=== PATIENT | male | born 1950 | race Caucasian/White ===

== ENCOUNTER 2020-09-06 08:09 | Outpatient (REF) | payer MEDICARE, SELFPAY ==
--- NOTE | 2020-09-06 | US_ITS ---
EXAMINATION: US RETROPERITONEAL LIMITED (AORTA) CLINICAL INFORMATION: Screening. History of smoking. COMPARISON: Ultrasound abdomen complete dated 08/28/2009. TECHNIQUE: Larson-scale, color Doppler and spectral Doppler evaluation of the abdominal aorta. FINDINGS: The aorta is normal. The measurements of the aorta in maximum AP and transverse dimensions respectively are as follows: Proximal: 2.8 x 2.8 cm. Mid: 2.2 x 2.6 cm. Distal: 2.1 x 2.2 cm. PSV: 48.9 cm/s. The measurements of the common iliac arteries in maximum AP and TRV dimensions are as follows: Right Common Iliac Artery: 1.2 x 1.2 cm. Left Common Iliac Artery: 1.2 x 1.3 cm. US/US aorta IMPRESSION: No abdominal aortic aneurysm. Mild atherosclerotic plaque seen..
== END 2020-09-06 08:10 | disposition home or self-care (01) ==
LOC: HO.US 08:09
PROVIDERS: PCP Internal Medicine; Visit Provider Internal Medicine
DX: Z72.0 Tobacco use (principal)
CPT/HCPCS: 76775

== ENCOUNTER 2021-01-21 13:23 | Outpatient (REF) | payer MEDICARE, SELFPAY ==
--- NOTE | ~2021-01-21 | XR_ITS ---
EXAMINATION: XR CHEST CLINICAL INFORMATION: COPD COMPARISON: CT chest 10/19/2019 TECHNIQUE: 2 views of the chest were obtained. FINDINGS: The lungs are hyperinflated but clear of acute process. Minimal atelectatic changes seen in the left lung base. The heart size and pulmonary vascularity is normal. No gross bony abnormality seen. XR/XR chest 2V IMPRESSION: Hyperinflated lungs otherwise no acute process seen. Minimal atelectatic changes left lung base.
== END 2021-01-21 13:24 | disposition home or self-care (01) ==
LOC: HO.XRAY 13:23
PROVIDERS: Absent Provider Internal Medicine; PCP Internal Medicine; Visit Provider Internal Medicine
DX: J18.9 Pneumonia, unspecified organism (principal); J44.9 Chronic obstructive pulmonary disease, unspecified
CPT/HCPCS: 71046

== ENCOUNTER 2021-01-22 13:11 | Outpatient (REF) | payer MEDICARE, SELFPAY ==
--- NOTE | ~2021-01-22 | CT_ITS ---
EXAMINATION: CT CHEST SCREENING CLINICAL INFORMATION: Lung cancer screening COMPARISON: October 2019 TECHNIQUE: Multidetector volumetric CT imaging of the chest is performed without contrast using low dose technique. Additional 2D coronal and sagittal reformatted images and axial 3D maximum intensity projection (MIP) images are generated on the CT workstation. This CT examination was performed using dose optimization techniques as appropriate, variously including the following: *Automated exposure control *Adjustment of mA and/or kV according to patient size (this includes techniques or standardized protocols for targeted exams where dose is matched to indication/reason for exam; i.e. extremities or head) *Use of iterative reconstruction technique DLP: 47 mGy-cm FINDINGS: LUNGS: There is evidence of emphysema. There is increasing scarring or subsegmental atelectasis at the right lung base. This has a somewhat nodular appearance on axial images for example measuring 6 x 10 mm axial image 479 series 5 and attention on follow-up is recommended. Scarring or subsegmental atelectasis at the left lung base appears decreased compared to previous exam. Small calcified and noncalcified pulmonary nodules are stable. MEDIASTINUM: There is coronary artery calcification. The mediastinum is otherwise normal. PLEURA: There is no pleural effusion. No pleural mass or thickening. AXILLA: No lymphadenopathy. UPPER ABDOMEN: Unremarkable OSSEOUS STRUCTURES: Unremarkable. CT/CT lung screening IMPRESSION: Emphysema. Stable small calcified and noncalcified pulmonary nodules. Increased atelectasis at the right lung base. This is a somewhat nodular contour and attention on follow-up is recommended. Decreased atelectasis at the left lung base compared to 2020 exam. ASSESSMENT: Lung-RADS category 2: Benign RECOMMENDATION: Annual low-dose chest CT follow-up recommended.
== END 2021-01-22 13:12 | disposition home or self-care (01) ==
LOC: HO.CT 13:11
PROVIDERS: PCP Internal Medicine; Visit Provider Physician Assistant Medical
DX: Z12.2 Encounter for screening for malignant neoplasm of respiratory organs (principal); F17.210 Nicotine dependence, cigarettes, uncomplicated
CPT/HCPCS: 71271

== ENCOUNTER → 2022-05-28 14:52 | Outpatient (BNVA) | payer MEDICARE, SELFPAY | PROVIDERS: PCP Internal Medicine; Visit Provider Internal Medicine | DX: R63.4 Abnormal weight loss (principal); R19.4 Change in bowel habit; F17.210 Nicotine dependence, cigarettes, uncomplicated; Z86.010 Personal history of colon polyps | CPT/HCPCS: 99202 ==

== ENCOUNTER → 2022-06-26 10:01 | Day surgery (SDC) | payer OTHER, SELFPAY ==
[2022-06-19 12:18] VITALS: BMI 17.8
--- NOTE | 2022-06-25 12:48 | P.CONAN_ITS ---
HPI - Anesthesia Eval Consult details Narrative: Cx'd DOS for +UTox 72yo M for Upper Endoscopy and Colonoscopy [facility] Active Problems Active Problems: All Active Problems (Updated 05/28/22 @ 17:08 by Irina Alvarado MD) Encounter for diagnostic colonoscopy due to change in bowel habits (Acute) Tobacco use disorder (Acute) Personal history of colonic polyps (Acute) Weight loss, unintentional (Acute) Past Medical History Medical History (Updated 05/28/22 @ 17:08 by Irina Alvarado MD) Allergic rhinitis Chronic hepatitis C COPD (chronic obstructive pulmonary disease) History of shingles HIV disease Hypogonadism male Mood disorder Multiple myeloma Opioid dependence Postherpetic neuralgia Tobacco use disorder Tubular adenoma of colon Vitamin D deficiency Family History Family History Other No family history of cancer Surgical History Surgical History (Updated 06/26/22 @ 10:10 by Mary Ch RN) Hx of colonoscopy Social History Social History Household Members: Spouse and Children Housing: Apartment Are you a primary child care teacher to a significant other at home: No Do you presently have visiting nurse or other home services: Yes Patient Tobacco Use Status: Current everyday Tobacco user Tobacco use type: Cigarette Cigarettes Per Day: 10 Use of substances other than those prescribed or required for medical reasons: Yes Substance Use Type: Marijuana Substance Use Type Other:: former heroin about 1 yr ago Substance Use Frequency: Daily Are you DNR?: No Advance Directives: No Advance Directives Information Provided: Yes service: No Current occupational status: disabled Meds Allergies Allergy/AdvReac Type Severity Reaction Status Date / Time No Known Allergies Allergy Verified 06/26/22 10:11 Home Medications Medication Instructions Recorded Confirmed Last Taken Type albuterol sulfate 90 mcg/actuation 2 puff inhalation Q4-6H PRN 04/01/22 06/26/22 Unknown History aerosol inhaler (Ventolin HFA) Shortness Of Breath Or Wheezing ascorbic acid (vitamin C) 500 mg 500 mg PO DAILY 04/01/22 06/26/22 Unknown History tablet bictegravir 50 mg-emtricitabine 1 tab PO QAM 04/01/22 06/26/22 Unknown History 200 mg-tenofovir alafenam 25 mg tablet (Biktarvy) buprenorphine 1.4 mg-naloxone 0.36 1.5 tab sublingual DAILY 04/01/22 06/26/22 Unknown History mg sublingual tablet (Zubsolv) doxepin 25 mg capsule 1 cap PO BEDTIME 04/01/22 06/26/22 Unknown History gabapentin 800 mg tablet 1 tab PO TID 04/01/22 06/26/22 Unknown History ipratropium 0.5 mg-albuterol 3 mg 3 ml inhalation QID PRN Fatigue 04/01/22 06/26/22 Unknown History (2.5 mg base)/3 mL nebulization soln mirtazapine 15 mg tablet 1 tab PO BEDTIME 04/01/22 06/26/22 Unknown History multivitamin 1 tab PO DAILY 04/01/22 06/26/22 Unknown History naloxone 4 mg/actuation nasal 4 mg intranasal Q3M PRN Opioid 04/01/22 06/26/22 Unknown History spray (Narcan) Overdose nebulizer and compressor ([place] 04/01/22 06/26/22 Unknown History Choice Nebulizer) tacrolimus 0.1 % topical ointment 1 appl topical BID 04/01/22 06/26/22 Unknown History (Protopic) Exam Exam Date and Time: June 25, 2022 1248 Height,Weight and Vital Signs: Height 5 ft 7 in Weight 51.71 kg Pertinent Lab Results Pertinent Lab Results: Laboratory Tests 05/02/22 05/02/22 13:23 13:23 WBC 4.0 L Hgb 14.9 Hct 46.6 Plt Count 123 L Sodium 141 Potassium 4.7 Chloride 105 Carbon Dioxide 27 BUN 21 H Creatinine 0.95 Assessment and Plan Assessment Anesthesia Assessment: Chart Reviewed
[2022-06-26 10:35] VITALS: BP 110/63; PULSE 57; RESP 15; TEMP 36.4; O2SAT 95
[2022-06-26] MEDS: Lactated Ringers 1,000 ML 100 ML IVCONT (10:41)
--- NOTE | 2022-06-26 12:02 | MHC.SHP ---
Pre-Procedural Eval Section A Date of Service: 06/26/22 The History & Physical has been completed within 30 days and I have reviewed it.: Yes Section B Chief Complaint: Abnormal weight loss, Benign neoplasm of colon Allergies: Allergies Allergy/AdvReac Type Severity Reaction Status Date / Time No Known Allergies Allergy Verified 06/26/22 10:11 Plan Diagnosis/Plan: Change I have reviewed the history and physical and performed a pertinent physical examination on my patient. Patient was noted to be reluctant to provide a urine sample for tox screen. Eventually disclosed that he had been actively using drugs including heroin. As per discussion with anesthesia team, procedure was canceled to avoid periprocedural complications. Pt was strongly counseled for abstinence. Procedure to be rescheduled.
--- NOTE | 2022-06-26 12:19 | PC.NURSE ---
after a few attempts to void, after almost a full liter, pt admitted to heroin use over the past week every day. torsten and made aware and cancelled. 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
== END ==
PROVIDERS: PCP Internal Medicine; Visit Provider Internal Medicine
DX: R19.4 Change in bowel habit (principal); Z53.8 Procedure and treatment not carried out for other reasons; Z86.010 Personal history of colon polyps; R63.4 Abnormal weight loss

== ENCOUNTER 2023-07-08 11:38 | Outpatient (REF) | payer OTHER, SELFPAY ==
[2023-07-08 13:38] LABS: Basophils Absolute Auto 0.1 X10*3/uL (0.0-0.2); Basophils Percent Auto 1.2 % (0-2); Eosinophils Absolute Auto 0.1 X10*3/uL (0.0-0.4); Eosinophils Percent Auto 2.1 % (0-4); Hematocrit 53.2 % (42.0-52.0); Hemoglobin 17.7 g/dl (14.0-18.0); Imm Gran Abs Auto 0.03 X10*3/uL (0.00-0.03); Imm Gran Pct Auto 0.6 % (0.0-0.4); Lymphocytes Absolute Auto 1.3 X10*3/uL (1.2-4.9); Lymphocytes Percent Auto 25.2 % (20-40); MANUAL DIFF FLAG SCAN; Mean Corpuscular HGB Conc 33.3 g/dl (31.0-36.0); Mean Corpuscular Volume 105.1 fL (80.0-98.0); Monocytes Absolute Auto 0.4 X10*3/uL (0.1-1.2); Monocytes Percent Auto 7.8 % (2-11); Neutrophils Absolute Auto 3.3 x10*3/uL (2.0-8.3); Neutrophils Percent Auto 63.1 % (45-73); PLT CLUMP 1; Red Blood Count 5.06 X10*6/uL (4.60-5.80); Red Cell Distribution Width 13.7 % (11.0-16.0); SCAN SMEAR FLAG 1
[2023-07-08 13:39] LABS: White Blood Count 5.2 X10*3/uL (4.8-10.8)
[2023-07-08 13:58] LABS: Cholesterol 201 mg/dL (<200); HDL Cholesterol 51 mg/dL (>40); LDL Cholesterol Calculated 123 mg/dL (<100); Triglycerides 136 mg/dL (<150)
[2023-07-08 14:16] LABS: Alanine Aminotransferase 6 U/L (0-40); Albumin Level 3.9 g/dL (3.5-5.0); Alkaline Phosphatase 132 U/L (39-117); Anion Gap 12 (12-20); Aspartate Amino Transferase 17 U/L (5-37); Bilirubin Total 0.5 mg/dL (0.0-1.0); Blood Urea Nitrogen 15 mg/dL (9-16); Calcium 9.4 mg/dL (8.4-10.2); Carbon Dioxide 31 mmol/L (22-29); Chloride 102 mmol/L (96-108); Estimated Glomerular Filt Rate > 60; Glucose Random 91 mg/dL (60-115); Potassium 4.7 mmol/L (3.3-5.1); Sodium 140 mmol/L (135-145)
[2023-07-08 14:37] LABS: Reflex LDLD? No
[2023-07-08 14:44] LABS: Mean Platelet Volume 10.4 fL (9.4-12.4); Platelet Count 121 X10*3/uL (160-400)
[2023-07-08 14:45] LABS: SLIDE REVIEW VERIFIED
[2023-07-09 13:18] LABS: Absolute CD3 Count 1092 cells/uL (840-3060); Absolute CD4 Count 387 cells/uL (490-1740); Absolute CD8 Count 706 cells/uL (180-1170); Absolute Lymphocytes 1368 cells/uL (850-3900); CD4 CD8 Ratio 0.55 (0.86-5.00); Percent CD3 Cells 80 % (57-85); Percent CD4 Cells 28 % (30-61); Percent CD8 Cells 52 % (12-42)
[2023-07-09 15:13] LABS: HIV RNA PCR Qn Copies 60 copies/mL (NOT DETECTED); HIV RNA PCR Qn Log Copies 1.78 (NOT DETECTED)
== END 2023-07-08 11:39 | disposition home or self-care (01) ==
LOC: HO.HHCL 11:38
PROVIDERS: Visit Provider Internal Medicine
DX: B20 Human immunodeficiency virus [HIV] disease (principal)
CPT/HCPCS: 36415; 80053; 80061; 85025; 86359; 86360; 87536